=== PATIENT | male | born 1965 | race Caucasian/White ===

== ENCOUNTER 2016-12-20 20:46 | Emergency (ER) | payer OTHER ==
[2016-12-20 20:49] VITALS: BP 144/79; PULSE 65; RESP 20; TEMP 98.4; O2SAT 97
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
== END 2016-12-21 00:42 | disposition home or self-care (01) ==
LOC: PHED 20:46 → PHEFT 12-21 00:42
DX: S20.211A Contusion of right front wall of thorax, initial encounter (principal); V29.88XA Motorcycle rider (driver) (passenger) injured in other specified transport accidents, initial encounter; Y93.I9 Activity, other involving external motion; Y92.39 Other specified sports and athletic area as the place of occurrence of the external cause; Y99.8 Other external cause status
CPT/HCPCS: 71101; 99284